=== PATIENT | male | born 1950 | race Caucasian/White ===

== ENCOUNTER 2024-12-05 05:21 | Emergency (ER) | payer MEDICARE, SELFPAY ==
--- OUTSIDE RECORDS SUMMARY | 2023-06-08 08:00 | XMS_ITS ---
Author Organization [facility] Address [address] [place] [address] Care Team Providers Care Tax Auditor Name Role Phone Jaime HAGER, Roly Primary Care Provider Unav Fredo Vines Unavailable [phone] REASON FOR VISIT Painful nail(s) aggrevated by shoes and causing difficulty standing/walking. Encounters [facility]counter [facility] Date [facility] [address] [place] [address] 06/08/2023 Fredo Johnson Tinea unguium B35.1 ; Pain in right toe(s) M79.674 ; Pain in left toe(s) M79.675 ; Skin disease L98.9 ; Type 2 diabetes mellitus with diabetic polyneuropathy E11.42 ; Xerosis cutis L85.3 ; Unspecified atherosclerosis of [place] arteries of extremities, bilateral legs I70.203 ; Ingrowing nail L60.0 ; Ataxic gait R26.0 and Subungual hematoma of toenail of right foot, initial encounter S90.221A Assessments Encounter Date Diagnosis (ICD Code) Assessment Notes Treatment Notes Treatment Clinical Notes Section Notes 06/08/2023 Tinea unguium (ICD-10 - B35.1) 06/08/2023 Pain in right toe(s) (ICD-10 - M79.674) 06/08/2023 Pain in left toe(s) (ICD-10 - M79.675) 06/08/2023 Skin disease (ICD-10 - L98.9) 06/08/2023 Type 2 diabetes mellitus with diabetic polyneuropathy (ICD-10 - E11.42) 06/08/2023 Xerosis cutis (ICD-10 - L85.3) 06/08/2023 Unspecified atherosclerosis of [place] arteries of extremities, bilateral legs (ICD-10 - I70.203) 06/08/2023 Ingrowing nail (ICD-10 - L60.0) 06/08/2023 Ataxic gait (ICD-10 - R26.0) 06/08/2023 Subungual hematoma of toenail of right foot, initial encounter (ICD-10 - S90.221A) Plan Of Treatment Next Appt Details Follow Up: 3 Months, Reason: Procedure Notes * Category Sub-Category Detail Notes Debride Nail 6-10 Nail debridement Nail debridem ent performed extensively to reduce/remove overall nail length and girth, subungual debris, and necrotic tissue, by manual and electrical means with use of a nail nipper and/or dremel, to more viable healthy nail plate or bed tissue 6-10. Silver nitrate used for any petechial bleeding as necessary. Patient chooses, no pharmaceutical tx (96702) I&D subungual hematoma: Location T5 Procedure: Recieved I&D subungu al hematoma. Debrided nail and curettaged hemorrhagic tissue to healthy bed. Application of sterile Bacitracin dressing. Local wound care instructions discussed and dispensed (85906), Pt was advised of the possibilty for nail auto-avulsion, DIABETES: Pt was advised as to the risk of delayed or nonhealing due to diabetes. Pt is to call the office with any questions, concerns, or complications Anesthesia was deferred - NEURO GIORGIO: patient has medically documented neuropathic condition affecting sensation Keratoma Treatment Parring or Cutting o f Benign Hyperkeratotic Lesion(s) 00796 (2-4 Lesions) - The Benign hyperkeratotic lesions, as described above were pared, and/or cut utilizing a sterile #15 blade, tissue nippers, and/or dremel Progress Notes * Jt SONG WDOB:1950 (74 yo M)Acc No.[id number]:06/08/2023 Progress Note Patient: Marilyn Jt FORD Provider: Damion Johnson DPM :1950 A ge:72 Y S ex:Male Date:06/08/2023 Address:[address] [place], [place] [id number] Pcp:Roly Sandoval MD Subjective: * Chief Complaints: * 1 . Painful nail(s) aggrevated by shoes and causing difficulty standing/walking.. * HPI: P ainful Nails: Pt States Last PCP Visit: D ate: 0 08/25/2021 Misc: d aughter i s present today. * ROS: G eneral/Constitutional: Nausea d enies. V omiting d enies. H dorothy Thirst d enies. L oss appetite d enies. C hills d enies. F atigue d enies.?Fever d enies. N ight Sweats d enies. U nexplained weight loss d enies. U nexplained weight gain d enies. H EENTM: Dentures d enies. D izziness d enies. G lasses/contacts a dmits. R etinopathy d enies. B lurred/double vision d enies. T MJ?denies. D ischarge/drainage d enies. I mplants d enies. S ore throat d enies. D ental implants d enies. H silvestre of hearing d enies. D ifficulty chewing/swallowing/speaking d enies. N ose bleeds d enies. S ore mouth d enies. ? R espiratory: On Oxygen d enies. P neumonia/pleurisy d enies.?Bronchitis d enies. E mphysema d enies. C oughing d enies. C ough blood?denies. S hortness of breath d enies. W heezing d enies. C ardiovascular: Pacemaker d enies. M BOWLING ALLEY FLOORS INSTALLER d enies. W PW d enies. C HF d enies. H eart attack d enies. S eptal defect d enies. R apid beat d enies. C hest pain d enies. A trial Fib. d enies. M urmur/Palpitations d enies. G astrointestinal: Hemorrhoids d enies. S tomach/Abdominal pain d enies. D ark blood stool d enies. I rritable bowel d enies. C onstipation a dmits. D iarrhea a dmits. H ematology: Swelling d enies. C lots d enies. V aricose Veins d enies. B ruising d enies. B leeding problem d enies. G enitourinary: Blood urine d enies. F requent/Painfu/urination/bladder control d enies. K idney stones d enies. I nfection (UTI) d enies. N ephropathy d enies. s ex trans dis (STD) d enies. P rostate a dmits. M usculoskeletal: Hammertoes d enies. B unions d enies. B ack Pain d enies. M uscle Cramps/ Resting d enies. M uscle cramps / walking d enies.?Generalized aches and pains d enies. W eakness d enies. I nteg.: [place] d enies. S cars d enies. C orns/calluses?denies. I ngrown nails a dmits. P ainful nails d enies. O pen Sores d enies. R ashes d enies. N eurologic: Difficulty sleeping a dmits. B rain disorder d enies. N umbness a dmits. B alance trouble d enies. C onfusion d enies. F ainting/blackouts d enies. T ingling d enies. T remors d enies. * Medical History: Objective: * Vitals: * Examination: O phthalmology Referral: DIABETES EYE EXAM D iabetic Retinopathy Screening: Y es 03/2021 N ails: NAILS are: E longated, overgrown, dystrophic, lytic, greater than 3mm thick, discolored and friable with crumbly malodorous subungual debris, with dull to no pain on palpation due to neuropathy, 1-5 B/L, There is evidence of hemorragic fluid below nailplate, T5. G eneral Examination: GENERAL APPEARANCE: p leasant, alert, well nourished, well developed, well hydrated, with good attention to hygene/body habitus, and in no acute distress. ORIENTED: p erson,place, and time. N eurological: SENSORY: Neurological exam demonstrates, reduced vibration sensation, B/L, at Forefoot, at Midfoot, 5.07 monofilament test performed at plantar aspects of 5 varied sites per foot shows sensation, reduced , B/L , Neurological exam demonstrates, reduced vibration sensation. V ascular: DP PULSES (B): 0/4, B/L. PT PULSES (B): 0/4, B/L. TROPHIC CONDITION-TEXTURE/ELASTICITY/TURGOR/HAIR GROWTH (B):? decreased, B/L. TEMPERTURE GRADIENT (C): decreased, cool to cold, proximal to distal, B/L. PIGMENTATION: cyanotic, B/L. EDEMA (C): 1/4, B/L, Feet, Ankle(s), Leg(s). ? D ermatologic: SKIN FINDINGS: Skin exam reveals Keratotic lesion(s) located at, Plantar, Heel(s), B/L , Dorsal, T2, T7 , T3, Skin exam reveals Keratotic lesion(s) located at, Medial plantar, IPJ, TA, T5, SUB MTH (s), 1, B/L . O rthopedic: MUSCLE STRENGTH: 5 /5 all groups in a symmetrical fashion , B/L. BUNION: Limited 1st MPJ Dorsal ROM, Limited 1st MPJ Plantar ROM. A bscess/infected nail: INSPECTION Reveals nail incurvation, dull pain on palpation due to neuropathy, groove laceration, localized cellulitis, inflammation, purulence, malodor, Medial nail border, TA. Assessment: * Assessment: 1. T inea unguium - B35.1 (Primary) 2 . P ain in right toe(s) - M79.674? 3. P ain in left toe(s) - M79.675 4 . S kin disease - L98.9? 5. T ype 2 diabetes mellitus with diabetic polyneuropathy - E11.42 6. X erosis cutis - L85.3 7 . U nspecified atherosclerosis of [place] arteries of extremities, bilateral legs - I70.203 8 . I ngrowing nail - L60.0 ? 9 . A taxic gait - R26.0 1 0. S ubungual hematoma of toenail of right foot, initial encounter - S90.221A Plan: * Treatment: * Procedures: D ebride Nail 6-10: Nail debridement N ail debridement performed extensively to reduce/remove overall nail length and girth, subungual debris, and necrotic tissue, by manual and electrical means with use of a nail nipper and/or dremel, to more viable healthy nail plate or bed tissue 6-10. Silver nitrate used for any petechial bleeding as necessary. Patient chooses, no pharmaceutical tx (71586). I &D subungual hematoma:: Location T 5. Anesthesia w as deferred - NEUROPATHY: patient has medically documented neuropathic condition affecting sensation. Procedure: R ecieved I&D subungual hematoma. Debrided nail and curettaged hemorrhagic tissue to healthy bed. Application of sterile Bacitracin dressing. Local wound care instructions discussed and dispensed (76882), Pt was advised of the possibilty for nail auto-avulsion, DIABETES: Pt was advised as to the risk of delayed or nonhealing due to diabetes. Pt is to call the office with any questions, concerns, or complications. K eratoma Treatment: Parring or Cutting of Benign Hyperkeratotic Lesion(s) 1 1056 (2-4 Lesions) - The Benign hyperkeratotic lesions, as described above were pared, and/or cut utilizing a sterile #15 blade, tissue nippers, and/or dremel. * Procedure Codes: 1 1721 DEBRIDE NAIL, 6 OR MORE, Modifiers: XS , 15038 TRIM SKIN LESIONS, 2 TO 4, Modifiers: XS , 25694 DRAINAGE OF HEMATOMA/FLUID, Modifiers: T5 * Follow Up: 3 Months * Images: * The named appointment provid er may or may not be the originator of this progress note, and it is not deemed complete until electronically signed by the appointment provider. Sign off status: Pending * Provider: Damion Johnson DPM Date: 0 06/08/2023 Generated for Dagoberto paez/Brisa/Radhika on: 0 12/05/2024 06:56 AM EDT History and Physical Notes * HPI (History of Present Illness) Category Sub-Category Detail Notes Category Not es Painful Nails Misc: daughter is present today Pt States Last PCP Visit: Date:: 08/25/2021 Examination Category Sub-Category Detail Notes Category Not es Neurological SENSORY: Neurological exa m demonstrates, reduced vibration sensation, B/L, at Forefoot, at Midfoot, 5.07 monofilament test performed at plantar aspects of 5 varied sites per foot shows sensation, reduced , B/L , Neurological exam demonstrates, reduced vibration sensation Dermatologic SKIN FINDINGS: Skin exam reveal s Keratotic lesion(s) located at, Plantar, Heel(s), B/L , Dorsal, T2, T7 , T3, Skin exam reveals Keratotic lesion(s) located at, Medial plantar, IPJ, TA, T5, SUB MTH (s), 1, B/L Orthopedic BUNION: Limited 1st MPJ Dorsal ROM, Limited 1st MPJ Plantar ROM MUSCLE STRENGTH: 5/5 all groups in a symmetrical fashion , B/L General Examination GENERAL APPEARANCE: pleasant , alert, well nourished, well developed, well hydrated, with good attention to hygene/body habitus, and in no acute distress ORIENTED: person,place, and ti me Ophthalmology Referral DIABETES EYE EXAM Diabeti c Retinopathy Screening:: Yes 03/2021 Vascular DP PULSES (B): 0/4, B/L PT PULSES (B): 0/4, B/L TEMPERTURE GRADIENT (C): decreased, cool to cold, proximal to distal, B/L TROPHIC CONDITION-TEXTURE/ELASTICITY/TURGOR/HAIR GROWTH (B): decreased, B/L EDEMA (C): 1/4, B/L, Feet, Ankl e(s), Leg(s) PIGMENTATION: cyanotic, B/L Nails NAILS are: Elongated, overg rown, dystrophic, lytic, greater than 3mm thick, discolored and friable with crumbly malodorous subungual debris, with dull to no pain on palpation due to neuropathy, 1-5 B/L, There is evidence of hemorragic fluid below nailplate, T5 Abscess/infected nail INSPECTION Reveals na il incurvation, dull pain on palpation due to neuropathy, groove laceration, localized cellulitis, inflammation, purulence, malodor, Medial nail border, TA
[2024-12-05] VITALS (8 sets, daily range): BP systolic 118–153; BP diastolic 55–76; PULSE 59–101; RESP 13–19; TEMP 36.4–36.8; O2SAT 94–99; BMI 38.0
--- NOTE | ~2024-12-05 | CT_ITS ---
EXAMINATION: CT CHEST WITH IV CONTRAST, CT ABDOMEN PELVIS WITH IV CONTRAST INDICATION: fall, ecchymosis right chest COMPARISON: There are no prior studies available for comparison.. TECHNIQUE: CT scan of the chest, abdomen and pelvis was performed following administration of 100 mL Omnipaque 350 using standard departmental protocol. Coronal and sagittal reformatted images were generated and reviewed. Oral contrast material was not administered at the request of the referring physician. This CT exam was performed with one or more of the following dose reduction techniques: automated exposure control, adjustment of the mA and/or kV according to patient size, use of iterative reconstruction technique. DLP: 1293 mGy-cm CHEST: THYROID: The thyroid is unremarkable. LUNGS: There is scarring at the lung bases. There is bronchiectasis in the lower lobes. There are no focal airspace opacities. MEDIASTINUM: There is no mediastinal lymphadenopathy. NORRIS: There is no hilar lymphadenopathy. CARDIOVASCULATURE: The heart is normal in size. There is no pericardial effusion. There is dilatation of the ascending thoracic aorta measuring up to 4.2 cm in diameter. DEGREE OF CORONARY CALCIFICATION: not evaluable, due to dense contrast in the coronary arteries PLEURA: There is no pleural effusion. No pneumothorax. MAIN AIRWAYS: The mainstem bronchi and proximal branches are patent. AXILLA: There is no axillary lymphadenopathy. SOFT TISSUES: Unremarkable. BONES: There is degenerative disc disease of the spine. There is an old healed left posterior rib fracture. ABDOMEN: LIVER: The liver is normal in size and contour. No liver mass is identified. The hepatic and portal veins are patent. GALLBLADDER / BILE DUCTS: There is cholelithiasis. There is no intra or extrahepatic biliary ductal dilatation. SPLEEN: The spleen is normal in size. No focal splenic lesion is identified. PANCREAS: The pancreas is unremarkable in appearance. ADRENAL GLANDS: Within normal limits. KIDNEYS/RETROPERITONEUM: No renal calculi are identified. There is no hydronephrosis. No renal masses are identified. LYMPH NODES: No abdominal or pelvic lymphadenopathy. VASCULATURE: The abdominal aorta demonstrates atherosclerotic calcification, but is normal in caliber. MESENTERY/PERITONEUM: No free fluid. No masses. There is no free intraperitoneal gas. STOMACH: The stomach is collapsed, limiting evaluation. SMALL BOWEL: The small bowel is normal in caliber. COLON: There is a large amount of stool throughout the colon. APPENDIX: Normal. URINARY BLADDER/PELVIC ORGANS: The urinary bladder is unremarkable. The prostate is normal in size. BONES / SOFT TISSUES: No suspicious bony or soft tissue abnormalities. CT/CT abdomen pelvis w IV con IMPRESSION: No evidence of traumatic injury to the chest, abdomen, or pelvis. Incidental findings as described above. Electronically signed by: Marcell Iverson MD 12/05/2024 09:34 AM EDT
--- NOTE | ~2024-12-05 | CT_ITS ---
EXAMINATION: CT CERVICAL SPINE WITHOUT IV CONTRAST HISTORY: fall x3. TECHNIQUE: Helical CT of the cervical spine was performed per standard departmental protocol. Coronal and sagittal reformatted images were also evaluated. One or more of the following techniques was used for dose reduction: Automated exposure control, adjustment of the mA and/or kV according to patient size, use of iterative reconstruction technique. DLP: 642 mGy-cm COMPARISON: There are no prior studies available for comparison. FINDINGS: CERVICAL SPINE: The vertebral bodies maintain normal height and alignment without evidence of fracture or subluxation. There is diffuse mild degenerative disc disease with disc space narrowing and osteophyte formation. There is diffuse facet osteoarthritis and uncovertebral joint hypertrophy, likely causing multilevel bilateral neural foraminal stenosis. Evaluation for disc pathology is limited by lack of intrathecal contrast material, however. BRAIN: The visualized portion of the brain is unremarkable. SINUSES: There is a polyp versus mucous retention cyst in the right sphenoid sinus. LUNG APICES: The visualized lung apices are clear. SOFT TISSUES: The visualized paraspinal soft tissues are unremarkable. CT/CT cervical spine wo IV con IMPRESSION: No evidence of fracture or malalignment of the cervical spine. Degenerative changes as described. Electronically signed by: Marcell Iverson MD 12/05/2024 09:22 AM EDT
--- NOTE | ~2024-12-05 | CT_ITS ---
EXAMINATION: CT HEAD WITHOUT CONTRAST CLINICAL INFORMATION: fall x3 with head strike COMPARISON: None available. TECHNIQUE: Contiguous axial imaging was performed from the skull base to vertex without intravenous administration of contrast. This CT examination was performed using dose optimization techniques as appropriate, variously including the following: *Automated exposure control *Adjustment of mA and/or kV according to patient size (this includes techniques or standardized protocols for targeted exams where dose is matched to indication/reason for exam; i.e. extremities or head) *Use of iterative reconstruction technique DLP: 914 mGy-cm FINDINGS: No acute cortical disruption in the bony calvarium. No acute intracranial hemorrhage, mass effect, midline shift, hydrocephalus or herniation. Bilateral patchy deep periventricular white matter hypodensities involving centrum semiovale and wood radiata. Sellar/suprasellar region demonstrated no gross masses. Posterior cranial fossa contents demonstrated no acute hemorrhage or mass effect. Normal position of the cerebellar tonsils. Calcified plaques in the cavernous supraclinoid segments both ICAs and V3/V4 segments of the vertebral arteries. Tiny punctate calcification in the extra-axial compartment, left sylvian fissure right temporal convexity. Tympanic cavities and mastoid air cells are aerated with poor pneumatization of the mastoids. Retention cysts versus polyps in the right sphenoid sinus and right abnormal air cells. Secretions in the posterior peripheral eyeballs. CT/CT head/brain wo IV con IMPRESSION: No acute fracture, bony calvarium. No acute intracranial hemorrhage. Small vessel occlusive disease. Ocular calcifications bilaterally. Recommend direct inspection since choroidal osteoma cannot be excluded. Electronically signed by: Charles Hamilton MD 12/05/2024 09:27 AM EDT
--- NOTE | 2024-12-05 05:30 | ECG_ITS ---
Test Reason : WEAKNESS Blood Pressure : */* mmHG Vent. Rate : 81 BPM Atrial Rate : 81 BPM P-R Int : 182 ms QRS Dur : 86 ms QT Int : 364 ms P-R-T Axes : * 217 144 degrees QTcB Int : 422 ms Normal sinus rhythm Low voltage QRS Possible Lateral infarct , age undetermined Abnormal ECG No previous ECGs available Referred By: Generic ED Physician Electronically Signed By: ANAMARIA ARELLANO
[2024-12-05 05:57] LABS: Hematocrit 39.7 % (42.0-52.0); Hemoglobin 14.2 g/dl (14.0-18.0); Imm Gran Abs Auto 0.04 X10*3/uL (0.00-0.03); Imm Gran Pct Auto 0.4 % (0.0-0.4); Lymphocytes Absolute Auto 1.4 X10*3/uL (1.2-4.9); MANUAL DIFF FLAG NO; Mean Corpuscular HGB Conc 35.8 g/dl (31.0-36.0); Mean Corpuscular Hemoglobin 31.1 pg (27.0-33.0); Mean Corpuscular Volume 87.1 fL (80.0-98.0); NRBC Abs Auto 0.000 X10*3/uL (0.0-0.012); NRBC Pct Auto 0.0 /100WBC (0.0-0.2); Platelet Count 199 X10*3/uL (160-400); Red Blood Count 4.56 X10*6/uL (4.60-5.80); White Blood Count 10.0 X10*3/uL (4.8-10.8)
[2024-12-05 06:18] LABS: Anion Gap 17 (12-20); Blood Urea Nitrogen 19 mg/dL (9-16); Calcium 9.2 mg/dL (8.4-10.2); Carbon Dioxide 22 mmol/L (22-29); Chloride 107 mmol/L (96-108); Cholesterol 133 mg/dL (<200); Creatinine Clr Calc Pharmacy 67.8; Estimated Glomerular Filt Rate 57; HDL Cholesterol 37 mg/dL (>40); Potassium 4.0 mmol/L (3.3-5.1); Sodium 142 mmol/L (135-145); Triglycerides 91 mg/dL (<150)
[2024-12-05 06:24] LABS: Troponin-I High Sensitivity 30.1 ng/L (<3.5-35.0)
--- OUTSIDE RECORDS SUMMARY | 2024-12-05 06:56 | XMS_ITS | Clinical Summary ---
Author Organization [employer] [facility] Address [address] [place] [address] Care Team Providers Care Occupational Therapy Supervisor Name Role Phone Roly Sandoval MD Primary Care Provider Social History Tobacco Use Types Packs/Day Years Used Date Smoking Tobacco: Never Assessed Sex and Gender Information Value Date Recorded Sex Assigned at Not on file Legal Sex Male 7:40 AM EST Gender Identity Not on file Sexual Orientation Not on file Plan of Treatment Health Maintenance Due Date Last Done Comments DTaP,Tdap,and Td Vaccines (1 - Tdap) 1969 Pneumococcal Vaccine: 50+ Years (2 of 2 - PPSV23) 12/07/2017 12/07/2016 Abdominal Aortic Aneurysm (AAA) Screen 06/22/2023 Cholesterol Screening (Lipid Panel) 06/22/2023 Colorectal Cancer Screening: Colonoscopy 06/22/2023 Depression Screening 06/22/2023 Falls Risk Assessment 06/22/2023 Hepatitis C Screening 06/22/2023 Social Influencers of Health Screening 06/22/2023 COVID-19 Vaccine (1 - 2023-2 5 season) 2024 Influenza Vaccine (#1) 2025 9, 03/07/2018 RSV Immunization Adult Patients (1 - 1-dose 75+ series) 2025 Zoster Vaccines Completed 09/26/2018, 07/26/2018, 08/12/2015 HIB Vaccines Aged Out No longer eligi ble based on patient's age to complete this topic HPV Vaccines Aged Out No longer eligi ble based on patient's age to complete this topic Hepatitis A Vaccines Aged Out No long er eligible based on patient's age to complete this topic Hepatitis B Vaccines Aged Out No long er eligible based on patient's age to complete this topic IPV Vaccines Aged Out No longer eligi ble based on patient's age to complete this topic MMR Vaccines Aged Out No longer eligi ble based on patient's age to complete this topic Meningococcal ACWY Vaccine Aged Out N o longer eligible based on patient's age to complete this topic Meningococcal B Vaccine Aged Out No l onger eligible based on patient's age to complete this topic RSV Immunization Patients Under 20 months Aged Out No longer eligible b ased on patient's age to complete this topic Varicella Vaccines Aged Out No longer eligible based on patient's age to complete this topic Advance Directives Documents on File Type Date Recorded Patient Skilled Labor Expl anation Health Care Decision (hx) 10/19/2017 AD ABERNATHY DIRECTIVE Health Care Decision (hx) 10/19/2017 AD ABERNATHY DIRECTIVE Health Care Decision (hx) 10/19/2017 AD ABERNATHY DIRECTIVE Care Teams Occupational Therapy Supervisor Relationship Specialty Start Date End Date Roly Sandoval MD PCP - General Internal Medicine 08/17/17
--- OUTSIDE RECORDS SUMMARY | 2024-12-05 06:57 | XMS_ITS | Clinical Summary ---
Author Organization [facility], Address [address] [place] [address] Phone Care Team Providers Care Health Consultant Name Role Phone Roly Sandoval MD Primary Care Provider Allergies Active Allergy Reactions Criticality Noted Date Comments Juan Inhibitors Other (see comments) 11/01/2013 Allopurinol Other (see comments) Medium 05/04/2022 Lorazepam 05/04/2022 Medications atorvastatin (LIPITOR) 20 MG tablet 9 Active clotrimazole-bet amethasone (LOTRISONE) cream clotrimazole-be tamethasone 1 %-0.05 % topical cream Active desoximetasone (TOPICORT) 0.05 % cream 9 Active gabapentin (NEURONTIN) 100 MG capsule gabapentin 100 mg capsule Active HYDROcodone-acet aminophen (NORCO) 7.5-325 MG per tablet hydrocodone 7.5 mg-acetaminophe n 325 mg tablet Active ketoconazole (NIZORAL) 2 % shampoo 0 Active metFORMIN (GLUCOPHAGE) 1000 MG tablet 9 Active sildenafil (VIAGRA) 100 MG tablet 9 Active traZODone (DESYREL) 50 MG tablet 9 Active triamcinolone (KENALOG) 0.1 % cream 9 Active valsartan-hydroC HLOROthiazide (DIOVAN-HCT) 160-25 MG per tablet valsartan 160 mg-hydrochlorot hiazide 25 mg tablet Active Blood Glucose Calibration (ACCU-CHEK ACTIVE GLUCOSE CONT ) Accu-Chek Comfort Curve Test strips TWO TIMES DAILY 2 Active glipiZIDE (GLUCOTROL XL) 10 MG 24 hr tablet Take 10 mg by mouth daily 0 Active oxyCODONE (OxyCONTIN) 10 MG 12 hr abuse-deterrent tablet OxyContin 10 mg tablet,crush resistant,exten ded release TAKE 1 TABLET BY MOUTH TWICE A DAY Active furosemide (LASIX) 40 MG tablet TAKE 1 TABLET BY MOUTH TWICE A DAY 60 tablet 11 2 Active traMADol (ULTRAM) 50 MG tablet TAKE 1 TABLET EVERY 6 HOURS BY ORAL ROUTE DIRECTED FOR 30 DAYS. 2 Active valsartan (DIOVAN) 160 MG tablet Take 160 mg by mouth 1 (one) time each day 2 Active ofloxacin (OCUFLOX) 0.3 % ophthalmic solution INSTILL 1 DROP INTO LEFT EYE 4 TIMES A DAY 2 Active ketorolac (ACULAR) 0.5 % ophthalmic solution INSTILL 1 DROP INTO AFFECTED EYE 4 TIMES A DAY 2 Active predniSONE (DELTASONE) 10 MG tablet TAKE 4 TABLETS EVERY DAY BY ORAL ROUTE FOR 4 DAYS. 3 Active nystatin (MYCOSTATIN) powder APPLY TO AFFECTED AREA TWICE A DAY 3 Active LORazepam (ATIVAN) 0.5 MG tablet TAKE 1 TABLET BY MOUTH TWICE A DAY NEEDED FOR 5 DAYS 3 Active Lancets (OneTouch Delica Plus [id number]) [facility] CHECK BLOOD SUGAR ONCE DAILY 3 Active OneTouch Verio test strip TAKE 1 STRIP TWICE A DAY 3 Active escitalopram (LEXAPRO) 20 MG tablet Take 20 mg by mouth 1 (one) time each day 3 Active colchicine 0.6 MG tablet TAKE 0.5 TABLETS BY MOUTH EVERY DAY FOR 90 DAYS. 3 Active Active Problems Problem Noted Date Diagnosed Date Polyneuropathy due to type 2 diabetes mellitus 1 06/20/2021 Secondary hyperparathyroidism 11/14/2021 Hypertensive renal disease 10/21/2021 Retinopathy due to diabetes mellitus 04/09/2021 Stage 3b chronic kidney disease 07/20/2019 Overview (05/27/2020): Update for Diagnosis Load Acute nontraumatic kidney injury 10/22/2017 Acute retention of urine 10/22/2017 Benign prostatic hyperplasia 11/01/2013 Essential hypertension 11/01/2013 Encounters Date Type Department Care Team Description 11/22/2024 1:30 PM EDT Office Visit [facility] [address] [place] [address] Mike Richmond MD Stage 3a chronic kidney disease (HCC) (Primary Dx); Type 2 diabetes mellitus with diabetic chronic kidney disease (HCC); Hypertension 11/10/2024 Orders Only [facility] [place] [address] [place] [address] Mike Richmond MD 11/08/2024 Orders Only [facility] [address] [place] [address] Nadia Workman Stage 3a chronic kidney disease (HCC) (Primary Dx); Type 2 diabetes mellitus with diabetic chronic kidney disease (HCC) 11/08/2024 Orders Only [facility] [address] [place] [address] Peggy Bedoya MA Stage 3a chronic kidney disease (HCC) (Primary Dx); Type 2 diabetes mellitus with diabetic chronic kidney disease (HCC); Hypertension; Albuminuria, not otherwise specified 09/29/2024 Telephone [facility] [address] [place] [address] Peggy Bedoya MA from Last 3 Months Immunizations Immunization Administration Dates Next Due H1N1 All Forms 05/30/2009 Influenza (IM) Preservative Free 03/05/2015,01/23 Influenza Split High Dose Pr eservative Free IM 03/12/2019,03/07/2018,04/08/2017,04/13 Influenza Split Preservative Free ID 02/09/2013 Influenza TIV (IM) 02/02/2012, 1,03/24/2010,02/21,04/05/2007 Influenza Vaccine, Quadrival ent, Adjuvanted 02/09/2020 Pneumococcal Conjugate 13-Valent 12/07/2016 Pneumococcal Polysaccharide 12/02/2015, 7 Td 04/04/2018 Tdap 01/25/2008 Zoster 09/26/2018, 9,07/26/2018,07/26,08/10/2016 Social History Tobacco Use Types Packs/Day Years Used Date Smoking Tobacco: Former Alcohol Use Standard Drinks/Week Comments Never 0 (1 standard drink = 0.6 oz pur e alcohol) AUDIT-C Answer Date Recorded Q1: How often do you have a drink containing alc ohol? Never 07/17/2019 Average Number of Drinks Not on file 020 Frequency of Binge Drinking Not on file 06/25 Sex and Gender Information Value Date Recorded Sex Assigned at Not on file Legal Sex Male 9:07 AM EST Gender Identity Not on file Sexual Orientation Not on file Last Filed Vital Signs Vital Sign Reading Time Taken Comments Blood Pressure 110/66 11/22/2024 1:47 PM EDT Pulse - - Temperature - - Respiratory Rate - - Oxygen Saturation - - Inhaled Oxygen Concentration - - Weight 117 kg (257 lb) 09/11/2020 3:52 PM EDT Height - - Body Mass Index - - Plan of Treatment Upcoming Encounters Date Type Department Care Team (Late st Contact Info) Description 11/28/2025 1:45 PM EDT Office Visit [facility] [address] [place] [phone] Mike Richmond MD [address] [place] [address] [place] [phone] Health Maintenance Due Date Last Done Comments Colorectal Cancer Screening: Annual FOBT 08/30/1999 Colorectal Cancer Screening: Colonoscopy 08/30/1999 Colorectal Cancer Screening: Sigmoidoscopy 08/30/1999 Diabetes: Ophthalmology Exam 07/26/2019 Diabetes: Pedal Pulse Checked 07/26/2019 Diabetes: Sensory Foot Exam 07/26/2019 Diabetes: Visual Foot Exam 07/26/2019 Diabetes: Hemoglobin A1C 11/04/2021 08/04/2021, 11/21 Influenza Vaccine (#1) 2025 2, 02/09/2020, 03/12/2019, Additional history exists Pneumococcal Vaccine: 50+ Years Completed 12/07/2016, 12/02/2015, 12/30/2006 Pneumococcal Vaccine: Peds (0 to 5 Years) and At-Risk Patients (6 to 49 Years) Discontinued 12/07/2016, 12/02/2015, 12/30/2006 Hepatitis B Vaccine Aged Out No longe r eligible based on patient's age to complete this topic Procedures Procedure Name Priority Date/Time Associated Diagnosis Comments URINE ALBUMIN / CREATININE RATIO Routine 11/10/2024 1:21 PM EDT RENAL FUNCTION PANEL Routine 11/08/2024 2:58 PM EDT Stage 3a chronic kidney disease (HCC) Type 2 diabetes mellitus with diabetic chronic kidney disease (HCC) Hypertension Albuminuria, not otherwise specified CBC AND DIFFERENTIAL Routine 11/08/2024 2:58 PM EDT Stage 3a chronic kidney disease (HCC) Type 2 diabetes mellitus with diabetic chronic kidney disease (HCC) Hypertension Albuminuria, not otherwise specified RENAL FUNCTION PANEL Routine 11/08/2024 2:57 PM EDT Stage 3a chronic kidney disease (HCC) Type 2 diabetes mellitus with diabetic chronic kidney disease (HCC) CBC AND DIFFERENTIAL Routine 11/08/2024 2:57 PM EDT Stage 3a chronic kidney disease (HCC) Type 2 diabetes mellitus with diabetic chronic kidney disease (HCC) HEMOGLOBIN A1C Routine 08/04/2021 9:32 AM EDT from Last 3 Months or Most Recently Relevant to Health Maintenance Results * Urine Albumin / Creatinine Ratio (11/10/2024 1:21 PM EDT) Creatinine, Ur 94.8 Not Estab. mg/dL [facility] Albumin, Urine 9.1 Not Estab. ug/mL [facility] Albumin/Creatin ine Ratio 10 0 - 29 mg/g creat [facility] Comment: Normal: 0 - 29 Moderately increased: 30 - 300 Severely increased: >300 11/10/2024 1:21 PM EDT 11/10/2024 Mike Richmond MD LAB URINE ORDERABLES Final Result [facility] [address] [place] [address] * CBC and Differential (11/08/2024 2:58 PM EDT) Only the most recent of2 resultswithin the time period is included. WBC 8.4 3.4 - 10.8 x10E3/uL [facility] RBC 4.93 4.14 - 5.80 x10E6/uL [facility] Hemoglobin 14.8 13.0 - 17.7 g/dL [facility] Hematocrit 44.7 37.5 - 51.0 % [facility] MCV 91 79 - 97 fL [facility] MCH 30.0 26.6 - 33.0 pg [facility] MCHC 33.1 31.5 - 35.7 g/dL [facility] RDW 12.9 11.6 - 15.4 % [facility] Platelets 204 150 - 450 x10E3/uL [facility] Neutrophils Relative 75 Not Estab. % [facility] Lymphocytes Relative 14 Not Estab. % [facility] Monocytes 7 Not Estab. % [facility] Eosinophils Relative 3 Not Estab. % [facility] Basophils Relative 1 Not Estab. % [facility] Neutrophils Absolute 6.3 1.4 - 7.0 x10E3/uL [facility] Lymphocytes Absolute 1.1 0.7 - 3.1 x10E3/uL [facility] Monocytes Absolute 0.6 0.1 - 0.9 x10E3/uL [facility] Eosinophils Absolute 0.2 0.0 - 0.4 x10E3/uL [facility] Basophils Absolute 0.1 0.0 - 0.2 x10E3/uL [facility] Immature Granulocytes 0 Not Estab. % [facility] Immature Grans (Absolute) 0.0 0.0 - 0.1 x10E3/uL [facility] Blood Venous blood / Unknown 11/08/2024 2:58 PM EDT 11/08/2024 us Mike Richmond MD LAB BLOOD ORDERABLES Final Result [facility] [address] [place] [address] * (ABNORMAL) Renal Function Panel (11/08/2024 2:58 PM EDT) Only the most recent of2 resultswithin the time period is included. Glucose 145(H) 70 - 99 mg/dL [facility] BUN 25 8 - 27 mg/dL [facility] Creatinine 1.30(H) 0.76 - 1.27 mg/dL [facility] eGFR CKD-EPI CR 2020 58(L) >59 mL/min/1.7 3 [facility] BUN/Creatinine Ratio 19 10 - 24 [facility] Sodium 140 134 - 144 mmol/L [facility] Potassium 4.6 3.5 - 5.2 mmol/L [facility] Chloride 103 96 - 106 mmol/L [facility] Bicarbonate (CO2) 17(L) 20 - 29 mmol/L [facility] Calcium 9.6 8.6 - 10.2 mg/dL [facility] Phosphorus 3.1 2.8 - 4.1 mg/dL [facility] Albumin 4.5 3.8 - 4.8 g/dL [facility] Blood Venous blood / Unknown 11/08/2024 2:58 PM EDT 11/08/2024 Mike Richmond MD LAB BLOOD ORDERABLES Final Result [facility] [address] [place] [address] * (ABNORMAL) Hemoglobin A1c (08/04/2021 9:32 AM EDT) Hemoglobin A1C 5.7(H) (4.0-5.6) % [facility] Comment: MONITORING: In known diabetic patients, hemoglobin A1c targets should be discussed with health care provider. DIAGNOSTIC USE: The [place] [employer] (ADA) and the World Health Organization (WHO) recommend the use of HbA1c to diagnose diabetes using a threshold of 6.5%. Patients who have an HbA1c between 5.7% and 6.4% are considered at increased risk for developing diabetes in the future. CAUTION: Falsely low HbA1c results may be observed in patients with hemolytic anemia, homozygous forms of abnormal hemoglobin (e.g. SS, CC, SC), , recent blood loss or hemoglobin F greater than 7%. Fructosamine may be used as an alternate test in these cases. REFERENCE: ADA: Standards of Medical Care in Diabetes 2020, The Journal of Clinical and Applied Research and Education Volume 43, Supplement 1 Testing performed or reported by [facility], a Service of [facility], [address] [place] [id number] Paulino Rose MD, [employer] [facility]# [id number] 08/04/2021 9:32 AM EDT 08/04/2021 10:09 AM EDT Aps External Provider LAB BLOOD ORDERABLES Final Result [facility] from Last 3 Months or Most Recently Relevant to Health Maintenance [place] [address] Medicaid Care Teams Health Consultant Relationship Specialty Start Date End Date Roly Sandoval MD [id number] [facility] [address] [place], [place] PCP - General Internal Medicine 06/13/19
--- NOTE | 2024-12-05 07:54 | ED_ITS ---
HPI - General Adult General Chief complaint: Weakness Stated complaint: WEAKNESS Time Seen by Provider: 12/05/24 07:53 Source: patient, family, EMS, RN notes reviewed and old records reviewed Mode of arrival: EMS History of Present Illness ED Provider: Napoleon HPI narrative: Patient is a 74-year-old male with a history of T2 DM, chronic pain recently started on a 50 mcg fentanyl patch around 1 month ago presenting to the emergency department with a complaint of generalized weakness and 3 falls in the past 24 hours. Patient states that 1 time he fell into furniture, another time he fell onto his knees and then was unable to get up. He ambulates with walker at baseline. States last fall was while trying to get out of bed to use a urinal. He is not anticoagulated. Does report positive head strike, denies loss of consciousness. reporting aside from patient that he has been increasingly confused since starting the fentanyl patch. She states that they removed the patch this morning as they felt this was related to his symptoms. He denies any chest pain, palpitations, dyspnea. Denies abdominal pain, nausea, vomiting, diarrhea or constipation. Denies recent cough or fevers. MD complaint: weakness, falls Related Data Home Medications ?Medication ?Instructions ?Recorded ?Confirmed acetaminophen 500 mg tablet 1,000 mg PO Q6H PRN Pain 0 12/06/24 12/06/24 atorvastatin 20 mg tablet 20 mg PO DAILY 12/06/2411/21 bupropion HCl 150 mg 24 hr tablet, 150 mg PO DAILY anx iety 12/06/24 12/06/24 extended release colchicine 0.6 mg tablet 0.3 mg PO DAILY 12/06/24 escitalopram oxalate 10 mg tablet 10 mg PO DAILY depre ssive disorder 12/06/24 12/06/24 gabapentin 100 mg capsule 200 mg PO BEDTIME 12/06/24 0 12/06/24 hydrocodone 5 mg-acetaminophen 325 1 tab PO QID PRN ch ronic pain 12/06/24 12/06/24 mg tablet metformin 500 mg tablet 500 mg PO BID diabetes melli tus 12/06/24 12/06/24 nystatin 100,000 unit/gram topical 1 appl topical BID PRN Rash 12/06/24 12/06/24 powder trazodone 50 mg tablet 150 mg PO BEDTIME 12/06/24 0 12/06/24 valsartan 160 mg tablet 160 mg PO DAILY 12/06/24 Allergies Allergy/AdvReac Type Severity Reaction Status Date / Time No Known Allergies Allergy Verified 12/05/24 05:29 Review of Systems 2 Review of Systems: As per HPI Yes all other systems are reviewed and are negative Constitutional: Constitutional: Reports as per HPI Neurologic: Denies Abnormal speech present Physical Exam ED Vital Signs: Vital Signs - 24 hr 12/06/24 19:50 12/07/24 00:14 12/07/24 09:01 Temperature 98.3 F 98 F 97.9 F Pulse Rate 103 H 88 98 Respiratory Rate 20 17 18 Blood Pressure 141/80 H 144/86 H 160/75 H Pulse Oximetry 94 95 92 Oxygen Delivery Method Room Air Room Air Room Air 12/07/24 09:05 Temperature 97.9 F Pulse Rate 98 Respiratory Rate 18 Blood Pressure 160/75 H Pulse Oximetry 92 Oxygen Delivery Method Room Air BMI result Body Mass Index 38.0 Vital signs have been reviewed and appear to be correct. Blood pressure normal. Heart rate normal. Respiratory rate normal. Temperature normal. Oxygen saturation normal. Const General: cooperative, no acute distress, alert and awake Nutritional Appearance: obese Orientation/consciousness: oriented to person, oriented to place, oriented to time and patient oriented x3 Limitations: physical limitations [facility] Head: Yes normocephalic, No Mccracken's sign and No periorbital ecchymosis Head images: 2 1. superficial abrasion Ears: external ears normal, TM's normal bilaterally and EAC's normal General nose exam: Normal external nose present, Normal nasal mucous membranes and turbinates present and Normal septum present Face and sinus: Yes face symmetric Mouth: oropharynx normal and moist mucous membranes Throat: Yes uvula midline Eyes Pupils: Equal, round and reactive pupils present (2mm bilat) EOM: EOMs intact bilaterally Neck Neck: Yes normal visual inspection, Yes full ROM, Yes trachea midline and Yes supple Chest Chest/axillae images: 2 1. large area of ecchymosis Resp Effort & Inspection: normal respiratory effort and able to speak in complete sentences Auscultation: clear to auscultation bilaterally Cardio Rate: regular rate Rhythm: regular rhythm Heart sounds: S1 normal heart sound present and S2 normal heart sound present GI Inspection: Yes abdominal wall ecchymosis Palpation (GI): Soft to palpation and nontender Auscultation: normoactive bowel sounds Abdomen image: 2 1. ecchymosis General: Yes no CVA tenderness Back/Spine/Pelvis Back: no CVA tenderness Cervical Spine: normal cervical lordosis, cervical ROM normal, No cervical muscular tenderness, No Cervical spine tenderness and No step off deformity Thoracic/Lumbar Spine: thoracic and lumbar spine normal to inspection, thoraco- lumbar ROM limited, No thoracic spinal tenderness and lumbar spinal tenderness at L3 and at L4 Skin Other: multiple abrasions and contusions in various stages of healing to trunk and extremities General skin exam: elasticity normal and turgor normal Neuro General: oriented to person, oriented to place, oriented to time, patient oriented x3, tone normal, moves all extremities, no focal motor deficits, CN's II-XI intact bilaterally, deep tendon reflexes 2+ bilaterally and Unable to assess gait Cranial nerves: Yes Equal, round and reactive pupils present (2mm bilat) Cognition (Neuro): normal cognition Speech: No Abnormal speech present Gait exam (Neuro): Unable to assess gait Extrem General: Yes full ROM, Yes no pedal edema and Yes no calf tenderness Upper/lower leg/hip images: 2 1. superficial abrasion Psych Mental Status: mental status grossly normal Affect: normal affect Thought process: Normal thought process present Course Course Course Narrative: Time: 12:00 Date: 12/06/24 Provider: LAUREN Bah Patient in physician observation for case management needs. No acute events reported overnight.? No current issues or complaints. VS stable. Leroy continue to monitor pending plan. 12/07/2024 0824 Sherry Baird PA-C ---> Observation care revealed the the patient does not meet medical necessity for hospitalization. Final disposition of STR at [facility] discussed with the patient who verbalized understanding and agreement. Patient completed observation care at 0830 on 12/07/2024, total time spent in observation care was 1 day, 21 hours, and 10 minutes. Medications Administered Discontinued Medications Generic Name Dose Route Start Last Admin Trade Name Freq PRN Reason Stop Dose Admin Hydrocodone Bitart/Acetaminophen 1 tab 12/05/24 18:15 12/07/24 08:57 Hydrocodone Bit/Acetam 5/325 Tablet PO 1 tab Q6H PRN Administration Pain, Severe (Pain Scale 7-10) Atorvastatin Calcium 20 mg 12/07/24 09:00 12/07/24 08:51 Atorvastatin Calcium 20 Mg Tablet PO 20 mg DAILY EDWARD Administration Bupropion HCl 150 mg 12/07/24 09:00 12/07/24 08:51 Bupropion Hcl Xl 150 Mg Tab.Er.24h PO 150 mg DAILY EDWARD Administration Colchicine 0.3 mg 12/07/24 09:00 12/07/24 08:51 Colchicine 0.6 Mg Tablet PO 0.3 mg DAILY EDWARD Administration Escitalopram Oxalate 10 mg 12/07/24 09:00 12/07/24 08:51 Escitalopram Oxalate 10 Mg Tablet PO 10 mg DAILY EDWARD Administration Gabapentin 200 mg 12/05/24 18:15 12/05/24 18:20 Gabapentin 100 Mg Capsule PO 12/05/24 18:16 200 mg ONCE ONE Administration Gabapentin 200 mg 12/06/24 21:00 12/06/24 21:33 Gabapentin 100 Mg Capsule PO 200 mg BEDTIME EDWARD Administration Acetaminophen 1,000 mg in 100 mls @ 400 mls/hr 12/05/24 16:11 12/05/24 17:15 Ofirmev IV 12/05/24 16:25 Infused ONCE ONE Infusion Iohexol 100 ml 12/05/24 08:42 12/05/24 08:43 Iohexol 350 Mg/Ml 100 Ml Infus..Btl IV 12/05/24 08:43 100 ml ONCE ONE Administration Metformin HCl 500 mg 12/06/24 17:00 12/07/24 08:51 Metformin Hcl 500 Mg Tablet PO 500 mg BIDWM EDWARD Administration Trazodone HCl 150 mg 12/06/24 21:00 12/06/24 21:33 Trazodone Hcl 50 Mg Tablet PO 150 mg BEDTIME EDWARD Administration Valsartan 160 mg 12/07/24 09:00 12/07/24 08:50 Valsartan 160 Mg Tablet PO 160 mg DAILY EDWARD Administration Protocol Medical Decision Making Medical Decision Making MDM Narrative: Patient is a 74-year-old male with a history of T2 DM, chronic pain recently started on a 50 mcg fentanyl patch around 1 month ago presenting to the emergency department with a complaint of generalized weakness and 3 falls in the past 24 hours. On exam patient is awake, A+Ox3, VS WNL, afebrile, normal neurological exam without focal deficits, physical exam findings as above. Given reported symptoms and physical exam findings, initial differential includes but is not limited to ICH, skull or cervical vertebral fracture subluxation, intrathoracic or intra-abdominal hemorrhage or other injury, drug or alcohol intoxication or withdrawal, UTI, pneumonia, viral infection, electrolyte abnormality, dehydration. Less likely ACS as symptoms have been ongoing. EKG shows normal sinus rhythm. Labs notable for no leukocytosis, no anemia, no significant electrolyte abnormalities, no NI, slightly elevated troponin but repeat downtredning. Urinalysis is without evidence of infection. CT head and C-spine notable for no evidence of ICH, skull or cervical vertebral fracture subluxation. CT chest, abdomen, pelvis notable for no acute intrathoracic or intra-abdominal hemorrhage or other injury. My interpretation is in agreement with the radiologist's interpretation. Viral serology negative. Urine drug screen positive only for fentanyl which patient is prescribed, ethanol negative. Feel symptoms likely due to fentanyl patch. Will order PT eval as both patient and agree he is too weak to return home at this time. Patient placed on physician observation pending PT/CM evaluation. Differential Diagnosis Differential Diagnoses: The differential diagnosis associated with the presentation includes As per [facility] Admission/Observation Consideration of admission/observation: Escalation of care including admission/observation considered Patient would have been admitted to the hospital had their clinical presentation warranted hospital admission. Lab Data [facility] Lab Attestation statement: I reviewed the patient's lab results. As per [facility] 12/05/24 05:48 12/05/24 05:48 Labs: Lab Results 12/05/24 12/05/24 12/05/24 Range/Units 05:48 09:05 09:40 WBC 10.0 (4.8-10.8) X10*3/uL RBC 4.56 L (4.60-5.80) X10*6/uL Hgb 14.2 (14.0-18.0) g/dl Hct 39.7 L (42.0-52.0) % MCV 87.1 (80.0-98.0) fL MCH 31.1 (27.0-33.0) pg MCHC 35.8 (31.0-36.0) g/dl RDW 12.9 (11.0-16.0) % Plt Count 199 (160-400) X10*3/uL MPV 9.6 (9.4-12.4) fL Immature Gran % (Auto) 0.4 (0.0-0.4) % Neut % (Auto) 76.6 H (45-73) % Lymph % (Auto) 13.5 L (20-40) % [place] % (Auto) 7.3 (2-11) % Eos % (Auto) 1.7 (0-4) % Baso % (Auto) 0.5 (0-2) % Lymph # (Auto) 1.4 (1.2-4.9) X10*3/uL [place] # (Auto) 0.7 (0.1-1.2) X10*3/uL Eos # (Auto) 0.2 (0.0-0.4) X10*3/uL Baso # (Auto) 0.1 (0.0-0.2) X10*3/uL Abs Immat Gran (auto) 0.04 H (0.00-0.03) X10*3/uL Absolute Neuts (auto) 7.7 (2.0-8.3) x10*3/uL Absolute Nucleated RBC 0.000 (0.0-0.012) X10*3/uL Nucleated RBC % (auto) 0.0 (0.0-0.2) /100WBC Sodium 142 (135-145) mmol/L Potassium 4.0 (3.3-5.1) mmol/L Chloride 107 (96-108) mmol/L Carbon Dioxide 22 (22-29) mmol/L Anion Gap 17 (12-20) BUN 19 H (9-16) mg/dL Creatinine 1.24 (0.5-1.4) mg/dL Estim Creat Clear Calc 67.8 Estimated GFR 57 POC Glucose (60-115) mg/dL Random Glucose 129 H (60-115) mg/dL Calcium 9.2 (8.4-10.2) mg/dL Troponin I High Sens 30.1 (<3.5-35.0) ng/L Triglycerides 91 (<150) mg/dL Cholesterol 133 (<200) mg/dL LDL Cholesterol, Calc 78 (<100) mg/dL HDL Cholesterol 37 L (>40) mg/dL Urine Color Yellow Urine Appearance Clear Urine pH 5.5 (5.0-9.0) Ur Specific [place] >= 1.030 H (1.005-1.025) Urine Protein Negative (Neg-Trace) mg/dL Urine Glucose (UA) Negative (Negative) mg/dL Urine Ketones Negative (Negative) mg/dL Urine Blood Negative (Negative) Urine Nitrite Negative (Negative) Ur Leukocyte Esterase Negative (Negative) Urine Opiates Screen Not Detected (Not Detect) Ur Buprenorphine Scrn Not Detected (Not Detect) ng/mL Ur Oxycodone Screen Not Detected (Not Detect) ng/mL Urine Methadone Screen Not Detected (Not Detect) ng/mL Urine Fentanyl Screen POSITIVE H (Not Detect) Ur Barbiturates Screen Not Detected (Not Detect) Ur Phencyclidine Scrn Not Detected (Not Detect) Ur Amphetamines Screen Not Detected (Not Detect) U Benzodiazepines Scrn Not Detected (Not Detect) Urine Cocaine Screen Not Detected (Not Detect) U Marijuana (THC) Screen Not Detected (Not Detect) Ethyl Alcohol < 10 mg/dL Influenza Type A (PCR) NEGATIVE (Negative) Influenza Type B (PCR) NEGATIVE (Negative) RSV RNA Qual (PCR) NEGATIVE (Negative) SARS-CoV-2 RNA (RT-PCR) NEGATIVE (Negative) 12/05/24 12/06/24 12/06/24 Range/Units 10:23 07:45 16:48 WBC (4.8-10.8) X10*3/uL RBC (4.60-5.80) X10*6/uL Hgb (14.0-18.0) g/dl Hct (42.0-52.0) % MCV (80.0-98.0) fL MCH (27.0-33.0) pg MCHC (31.0-36.0) g/dl RDW (11.0-16.0) % Plt Count (160-400) X10*3/uL MPV (9.4-12.4) fL Immature Gran % (Auto) (0.0-0.4) % Neut % (Auto) (45-73) % Lymph % (Auto) (20-40) % [place] % (Auto) (2-11) % Eos % (Auto) (0-4) % Baso % (Auto) (0-2) % Lymph # (Auto) (1.2-4.9) X10*3/uL [place] # (Auto) (0.1-1.2) X10*3/uL Eos # (Auto) (0.0-0.4) X10*3/uL Baso # (Auto) (0.0-0.2) X10*3/uL Abs Immat Gran (auto) (0.00-0.03) X10*3/uL Absolute Neuts (auto) (2.0-8.3) x10*3/uL Absolute Nucleated RBC (0.0-0.012) X10*3/uL Nucleated RBC % (auto) (0.0-0.2) /100WBC Sodium (135-145) mmol/L Potassium (3.3-5.1) mmol/L Chloride (96-108) mmol/L Carbon Dioxide (22-29) mmol/L Anion Gap (12-20) BUN (9-16) mg/dL Creatinine (0.5-1.4) mg/dL Estim Creat Clear Calc Estimated GFR POC Glucose 109 128 H (60-115) mg/dL Random Glucose (60-115) mg/dL Calcium (8.4-10.2) mg/dL Troponin I High Sens 23.9 (<3.5-35.0) ng/L Triglycerides (<150) mg/dL Cholesterol (<200) mg/dL LDL Cholesterol, Calc (<100) mg/dL HDL Cholesterol (>40) mg/dL Urine Color Urine Appearance Urine pH (5.0-9.0) Ur Specific [place] (1.005-1.025) Urine Protein (Neg-Trace) mg/dL Urine Glucose (UA) (Negative) mg/dL Urine Ketones (Negative) mg/dL Urine Blood (Negative) Urine Nitrite (Negative) Ur Leukocyte Esterase (Negative) Urine Opiates Screen (Not Detect) Ur Buprenorphine Scrn (Not Detect) ng/mL Ur Oxycodone Screen (Not Detect) ng/mL Urine Methadone Screen (Not Detect) ng/mL Urine Fentanyl Screen (Not Detect) Ur Barbiturates Screen (Not Detect) Ur Phencyclidine Scrn (Not Detect) Ur Amphetamines Screen (Not Detect) U Benzodiazepines Scrn (Not Detect) Urine Cocaine Screen (Not Detect) U Marijuana (THC) Screen (Not Detect) Ethyl Alcohol mg/dL Influenza Type A (PCR) (Negative) Influenza Type B (PCR) (Negative) RSV RNA Qual (PCR) (Negative) SARS-CoV-2 RNA (RT-PCR) (Negative) 12/07/24 Range/Units 08:06 WBC (4.8-10.8) X10*3/uL RBC (4.60-5.80) X10*6/uL Hgb (14.0-18.0) g/dl Hct (42.0-52.0) % MCV (80.0-98.0) fL MCH (27.0-33.0) pg MCHC (31.0-36.0) g/dl RDW (11.0-16.0) % Plt Count (160-400) X10*3/uL MPV (9.4-12.4) fL Immature Gran % (Auto) (0.0-0.4) % Neut % (Auto) (45-73) % Lymph % (Auto) (20-40) % [place] % (Auto) (2-11) % Eos % (Auto) (0-4) % Baso % (Auto) (0-2) % Lymph # (Auto) (1.2-4.9) X10*3/uL [place] # (Auto) (0.1-1.2) X10*3/uL Eos # (Auto) (0.0-0.4) X10*3/uL Baso # (Auto) (0.0-0.2) X10*3/uL Abs Immat Gran (auto) (0.00-0.03) X10*3/uL Absolute Neuts (auto) (2.0-8.3) x10*3/uL Absolute Nucleated RBC (0.0-0.012) X10*3/uL Nucleated RBC % (auto) (0.0-0.2) /100WBC Sodium (135-145) mmol/L Potassium (3.3-5.1) mmol/L Chloride (96-108) mmol/L Carbon Dioxide (22-29) mmol/L Anion Gap (12-20) BUN (9-16) mg/dL Creatinine (0.5-1.4) mg/dL Estim Creat Clear Calc Estimated GFR POC Glucose 124 H (60-115) mg/dL Random Glucose (60-115) mg/dL Calcium (8.4-10.2) mg/dL Troponin I High Sens (<3.5-35.0) ng/L Triglycerides (<150) mg/dL Cholesterol (<200) mg/dL LDL Cholesterol, Calc (<100) mg/dL HDL Cholesterol (>40) mg/dL Urine Color Urine Appearance Urine pH (5.0-9.0) Ur Specific [place] (1.005-1.025) Urine Protein (Neg-Trace) mg/dL Urine Glucose (UA) (Negative) mg/dL Urine Ketones (Negative) mg/dL Urine Blood (Negative) Urine Nitrite (Negative) Ur Leukocyte Esterase (Negative) Urine Opiates Screen (Not Detect) Ur Buprenorphine Scrn (Not Detect) ng/mL Ur Oxycodone Screen (Not Detect) ng/mL Urine Methadone Screen (Not Detect) ng/mL Urine Fentanyl Screen (Not Detect) Ur Barbiturates Screen (Not Detect) Ur Phencyclidine Scrn (Not Detect) Ur Amphetamines Screen (Not Detect) U Benzodiazepines Scrn (Not Detect) Urine Cocaine Screen (Not Detect) U Marijuana (THC) Screen (Not Detect) Ethyl Alcohol mg/dL Influenza Type A (PCR) (Negative) Influenza Type B (PCR) (Negative) RSV RNA Qual (PCR) (Negative) SARS-CoV-2 RNA (RT-PCR) (Negative) Independent Interpretation I performed an independent interpretation of an: EKG (Normal sinus rhythm, rate 81 beats per minute, normal NJ interval and QTC) and CT Scan Interpretation: CT head and C-spine notable for no evidence of ICH, skull or cervical vertebral fracture subluxation. CT chest, abdomen, pelvis notable for no acute intrathoracic or intra-abdominal hemorrhage or other injury. Radiology Impression Discussion of test interpretation with radiology: I have reviewed the radiologist's reading. Radiologist Impression: CT/CT head/brain wo IV con IMPRESSION: No acute fracture, bony calvarium. No acute intracranial hemorrhage. Small vessel occlusive disease. Ocular calcifications bilaterally. Recommend direct inspection since choroidal osteoma cannot be excluded. CT/CT chest w IV con IMPRESSION: No evidence of traumatic injury to the chest, abdomen, or pelvis. Incidental findings as described above. CT/CT cervical spine wo IV con IMPRESSION: No evidence of fracture or malalignment of the cervical spine. Degenerative changes as described. CT/CT abdomen pelvis w IV con IMPRESSION: No evidence of traumatic injury to the chest, abdomen, or pelvis. Incidental findings as described above. Independent Historian Clinical information obtained from an independent historian. History obtained from or confirmed by: Spouse External Record Review External record reviewed: Inpatient record, Office record and Outpatient record Discharge Plan Discharge Clinical Impression: Weakness, Multiple falls Patient Disposition: Xfer SNF Transfer Details: To [facility] Instructions: Weakness (ED) Additional Instructions: Please continue all at-home medications as prescribed. If any new or worsening symptoms occur including but not limited to increased weakness, severe chest pain or shortness of breath, please seek emergent care. Prescriptions: No Action metformin 500 mg tablet 500 mg PO BID atorvastatin 20 mg tablet 20 mg PO DAILY trazodone 50 mg tablet 150 mg PO BEDTIME hydrocodone-acetaminophen 5-325 mg tablet 1 tab PO QID PRN (Reason: chronic pain) acetaminophen 500 mg Tablet 1,000 mg PO Q6H PRN (Reason: Pain) gabapentin 100 mg capsule 200 mg PO BEDTIME nystatin 100,000 unit/gram powder 1 appl topical BID PRN (Reason: Rash) valsartan 160 mg tablet 160 mg PO DAILY escitalopram oxalate 10 mg tablet 10 mg PO DAILY bupropion HCl 150 mg tablet extended release 24 hr 150 mg PO DAILY colchicine 0.6 mg tablet 0.3 mg PO DAILY Referrals: [facility] [Other] Interventions: ED Discharge Assessment Last Done: 12/07/24 09:05 Discharge Date/Time: 12/07/24 09:13 Print Language: Guamanian
[2024-12-05] MEDS: iohexoL 350 MG/ML 100 ML INFUS..BTL IV (08:43)
[2024-12-05 09:49] LABS: Appearance Urine Clear; Glucose Urine UA Negative (Negative); PH 5.5 (5.0-9.0); Specific Gravity - Urine >= 1.030 (1.005-1.025)
[2024-12-05 09:51] LABS: Resp Syncy Virus RNA Qual PCR NEGATIVE (Negative); SARS COV2 PCR INHOUSE NEGATIVE (Negative)
[2024-12-05 10:04] LABS: Cannabinoid Screen Urine Not Detected (Not Detect)
--- NOTE | 2024-12-05 10:04 | PC.NURSE ---
Stood pt up to pee w/ 2 assist and a walker for support. Pt denied dizziness or lightheadedness.
[2024-12-05 10:48] LABS: Troponin-I High Sensitivity 23.9 ng/L (<3.5-35.0)
--- NOTE | 2024-12-05 16:30 | MHC.CM.ED ---
Addendum entered by Hodan Wills 12/05/24 18:14: CM spoke with patient and /HCP Sabrina. They are agreeable to acute rehab with [facility] as first choice. If no acute offers, they are uncomfortable with STR, as patient has had bad experiences at [facility] and [facility]. They would be more agreeable to Home PT. [facility] is first choice. He was active with them in the past. Pt uses a rollator and they have no home services except for MOW. Original Note: CM met with patient to discuss discharge planning Pt is A&Ox3. Patient has hx of chronic pain in both hips and DMT2. He has been using a fentanyl patch for about a month for chronic pain. His PCP is Dr. Sandoval at [facility]. Health insurance is [employer]. Address verified. HCP reviewed, completed and signed. Copies given. Uploaded in [employer] and [facility]. HCP/ Sabrina Song ([phone]). PT recommending acute rehab. Pt is agreeable. Will place referrals to 3 acute rehabs. Will follow for discharge planning.
[2024-12-05] MEDS: HYDROcodone Bit/Acetam 5/325 TABLET 1 TAB PO (22:11)
--- NOTE | 2024-12-06 03:49 | PC.NURSE ---
Patient A&Ox3, asleep overnight. Restless at times. Medicated for pain at HS. Safety measures in place bed alarm on , call eubanks within reach.
[2024-12-06 05:24] VITALS: BP 135/76; PULSE 99; RESP 18; TEMP 36.1; O2SAT 93
[2024-12-06 07:53] LABS: Glucose, Whole Blood 109 mg/dL (60-115)
--- NOTE | 2024-12-06 10:21 | MHC.CM.ED ---
Patient remains in ER overflow. Physical therapy rec rehab. No acute rehab bed offers. Referral made to [facility]. [facility] is uanble to accept patient due to staffing. Met with patient in regards to discharge planning. Above information explained. Patient would prefer to go home with [facility]. Patient agreeable to referral being broadcasted for [facility]. Spoke with patient's , Sabrina, via telephone. Above information explained to Sabrina. Sabrina will be here at 12pm to transport patient home. Patient, Korin RN and Marcie AGUILAR aware. Continue to monitor for d/c needs.
--- NOTE | 2024-12-06 11:50 | MHC.CM.ED ---
Received notification from , Sabrina, that she is concerned about being able to safely take care of patient at home. Sabrina and patient's daughter will be on-site at 115pm to discuss STR with patient. Continue to monitor for d/c needs.
--- NOTE | 2024-12-06 13:51 | MHC.CM.ED ---
Met with patient, Sabrina and daughter Arminda. Multiple bed offers discussed with patient and family. Family accepts bed at [facility]. HELENE is in the process of obtaining insurance auth. Patient and family aware. Continue to monitor for d/c needs.
[2024-12-06 14:00] VITALS: BP 114/79; PULSE 103; RESP 18; TEMP 36.7; O2SAT 90
--- NOTE | 2024-12-06 14:54 | PHA.MEDREC ---
Addendum entered by Latosha Cheatham RPh 12/06/24 15:35: MED REC REVIEWED BY [facility] Original Note: Pharmacy Consult ? Medication Reconciliation Pharmacy has completed the medication reconciliation. Spoke with pt and spouse at bedside and they were able to confirm the pt medications. Pt and spouse confirmed the pt no longer takes the Fentanyl patches as of 2 days ago due to the pt starting to get dizzy and confused and family thinking the patches were the reason. Pt confirmed he has 2 hydrocodone-acetaminophen pills at home as needed for sever/chronic pain.
[2024-12-06] MEDS: HYDROcodone Bit/Acetam 5/325 TABLET 1 TAB PO ×2 (15:47→22:14)
[2024-12-06 16:52] LABS: Glucose, Whole Blood 128 mg/dL (60-115)
--- NOTE | 2024-12-06 17:48 | MHC.CM.ED ---
[facility]LENE obtained auth. [facility] declined transport. Pt has [facility] medicare advantage. BLS booked with [facility]07 at 8:30 am. Primary RN and provider aware. Patient and aware. Med nec/face sheet to distance learning unit leader.
[2024-12-06 19:50] VITALS: BP 141/80; PULSE 103; RESP 20; TEMP 36.8; O2SAT 94
[2024-12-07 00:14] VITALS: BP 144/86; PULSE 88; RESP 17; TEMP 36.6; O2SAT 95
[2024-12-07 08:10] LABS: Glucose, Whole Blood 124 mg/dL (60-115)
[2024-12-07] MEDS: buPROPion HCl XL 150 MG TAB.ER.24H PO (08:51)
[2024-12-07] MEDS: HYDROcodone Bit/Acetam 5/325 TABLET 1 TAB PO (08:57)
[2024-12-07 09:01] VITALS: BP 160/75; PULSE 98; RESP 18; TEMP 36.6; O2SAT 92
[2024-12-07 09:05] VITALS: BP 160/75; PULSE 98; RESP 18; TEMP 36.6; O2SAT 92
== END 2024-12-07 09:13 | disposition skilled nursing facility (03) ==
PROVIDERS: Registered Nurse Emergency; Emergency Provider Emergency Medicine; PCP Internal Medicine
DX: R53.1 Weakness (principal); R58 Hemorrhage, not elsewhere classified; S00.81XA Abrasion of other part of head, initial encounter; S30.810A Abrasion of lower back and pelvis, initial encounter; W19.XXXA Unspecified fall, initial encounter; Y93.89 Activity, other specified; Y92.89 Other specified places as the place of occurrence of the external cause; Y99.9 Unspecified external cause status; E11.9 Type 2 diabetes mellitus without complications; R41.0 Disorientation, unspecified; G89.29 Other chronic pain; Z79.899 Other long term (current) drug therapy; Z03.818 Encounter for observation for suspected exposure to other biological agents ruled out
CPT/HCPCS: 36415; 70450; 71260; 72125; 74177; 80048; 80061; 80307; 81003; 82947; 84484; 85025; 87637; 93005; 96365; 97162; 99285; J0131; Q9967

== ENCOUNTER → 2024-12-05 05:30 | Outpatient (BNV) | payer MEDICARE, SELFPAY | PROVIDERS: Emergency Provider Emergency Medicine; Visit Provider Internal Medicine | DX: R94.31 Abnormal electrocardiogram [ECG] [EKG] (principal); R53.1 Weakness | CPT/HCPCS: 93010 ==

== ENCOUNTER → 2024-12-05 07:56 | Outpatient (BNV) | payer SELFPAY | PROVIDERS: Emergency Provider Emergency Medicine; Visit Provider Radiology Diagnostic Radiology | DX: S20.211A Contusion of right front wall of thorax, initial encounter (principal); M50.30 Other cervical disc degeneration, unspecified cervical region; I67.89 Other cerebrovascular disease; W19.XXXA Unspecified fall, initial encounter | CPT/HCPCS: 70450; 71260; 72125; 74177 ==